=== PATIENT | female | born 1975 | race African-American/Black ===

== ENCOUNTER 2022-08-05 11:41 | Inpatient (IN) | payer MEDICAID ==
[~2022-08-05] VITALS: Ht 160 cm; Wt 56.9 kg
[2022-08-05] MEDS ORDERED: HYDROmorphone HCL 2 MG/ML VL/or syr IV ONE (12:15)
[2022-08-05] MEDS ORDERED: SODIUM CHLORIDE 0.9% 1,000 ML IV ONE ×2 (12:15→23:45)
[2022-08-05] MEDS ORDERED: ONDANSETRON HCL 4 MG/2 ML VIAL IV ONE (12:15)
[2022-08-05 12:26] LABS: Hematocrit 25.2 % (36.0-46.0); Hemoglobin 8.8 g/dL (12.2-16.2); Mean Corpuscular Hemoglobin 34.2 pg (28.0-32.0); Mean Corpuscular Hgb Conc. 35.1 g/dL (32.0-36.0); Mean Corpuscular Volume 97.2 fL (80.0-100.0); Red Blood Cells 2.59 10^6/uL (4.0-5.20); White Blood Cell 16.6 10^3/uL (4.4-10.8)
[2022-08-05 12:36] LABS: Red Cell Distribution Width 23.6 % (11.8-14.3)
[2022-08-05 12:41] LABS: Basophils % (manual) 0 (0.0-2.0); Blast Cells 0; Eosinophils % (manual) 0 (0-7); INR 1.56 (0.9-1.15); Myelocytes % 0; Partial Thromboplastin Time 34.2 sec (24.6-33.4); Promyelocytes % 0; Reactive Lymphocytes 0
[2022-08-05 12:54] LABS: Albumin 4.3 g/dL (3.4-5.0); Calcium 9.1 mg/dL (8.5-10.1); Potassium 3.9 mmol/L (3.5-5.1)
[2022-08-05 12:58] LABS: BUN/Creatinine Ratio 13.8; Bilirubin, Total 5.3 mg/dL (0.2-1.0); Total Protein 8.3 g/dL (6.4-8.2)
[2022-08-05 14:55] LABS: Band Neutrophils % (manual) 9; Lymphocytes % (manual) 5 (10.0-50.0); Metamyelocytes % 1; Monocytes % (manual) 3 (0-12)
[2022-08-05] MEDS: SODIUM CHLORIDE 0.9% 1,000 ML IV SCH (22:00)
[2022-08-05] MEDS: ACETAMINOPHEN 325 MG TAB PO PRN (23:35)
[2022-08-06] MEDS: SODIUM CHLORIDE 0.9% 1,000 ML IV SCH ×3 (00:49→21:25)
[2022-08-06] MEDS: MORPHINE SULFATE INJ 2 MG/ml SYRG IV PRN ×3 (00:50→21:27)
[2022-08-06] MEDS: ONDANSETRON HCL 4 MG/2 ML VIAL IV PRN ×2 (00:50→06:27)
[2022-08-06] MEDS: HYDROcodone-ACET 5/325MG TAB PO PRN ×2 (02:49→10:59)
[2022-08-06] MEDS: DOCUSATE SOD 100 MG CAP PO PRN (03:47)
[2022-08-06 04:49] LABS: Urine Amorphous Crystal FEW /hpf (None Seen); Urine Bacteria FEW /hpf (None Seen); Urine Blood 3+ /uL (Negative); Urine Mucus FEW (None Seen); Urine Specific Gravity 1.012 (1.001-1.035); Urine WBC 1 /hpf (0 - 5)
[2022-08-06 04:50] LABS: Hemoglobin 8.2 g/dL (12.2-16.2)
[2022-08-06 04:56] LABS: INR 2.03 (0.9-1.15); Partial Thromboplastin Time 39.3 sec (24.6-33.4)
[2022-08-06 04:58] LABS: Albumin 3.3 g/dL (3.4-5.0); Anion Gap 10 (5-15); BUN/Creatinine Ratio 22.2; Blood Urea Nitrogen 18 mg/dL (7-18); Calcium 7.5 mg/dL (8.5-10.1); Carbon Dioxide 19 mmol/L (21-32); Chloride 107 mmol/L (98-107); GFR African American 97 mL/min; GFR Non-African American 81 mL/min; Glucose 113 mg/dL (74-106); Potassium 3.6 mmol/L (3.5-5.1); Sodium 136 mmol/L (136-145)
[2022-08-06 05:00] LABS: Basophils # (auto) 0.2 10 ^3/uL (0-0.2); Basophils % (auto) 1.1 % (0.0-2.0); Eosinophils # (auto) 0 10 ^3/uL (0-0.8); Eosinophils % (auto) 0.2 % (0.0-7.0); Hematocrit 22.8 % (36.0-46.0); Lymphocytes # (auto) 0.9 10 ^3/uL (0.4-5.4); Lymphocytes % (auto) 5.8 % (10.0-50.0); Mean Corpuscular Hemoglobin 35.7 pg (28.0-32.0); Mean Corpuscular Hgb Conc. 36.1 g/dL (32.0-36.0); Mean Corpuscular Volume 98.9 fL (80.0-100.0); Monocytes # (auto) 1.8 10 ^3/uL (0-1.3); Neutrophils # (auto) 11.8 10 ^3/uL (1.6-8.6); Neutrophils % (auto) 80.9 % (37.0-80.0); Red Blood Cells 2.31 10^6/uL (4.0-5.20); White Blood Cell 14.6 10^3/uL (4.4-10.8)
[2022-08-06 05:01] LABS: Alanine Aminotransferase 64 U/L (13-56); Alkaline Phosphatase 175 U/L (45-117); Aspartate Aminotransferase 205 U/L (15-37); Bilirubin, Total 3.8 mg/dL (0.2-1.0); Red Cell Distribution Width 24.3 % (11.8-14.3); Total Protein 6.8 g/dL (6.4-8.2)
[2022-08-06] MEDS: PANTOPRAZOLE 40 MG/10 ML VIAL INJ IV SCH (10:07)
[2022-08-06] MEDS: ACETAMINOPHEN 325 MG TAB PO PRN (16:36)
[2022-08-06] MEDS ORDERED: WARFARIN SODIUM 5 MG TAB PO ONE (17:00)
[2022-08-06 23:22] VITALS: BP 132/73
[2022-08-07] VITALS (7 sets, daily range): BP systolic 103–127; BP diastolic 61–80
[2022-08-07] MEDS ORDERED: WARF6TAB21 PO (00:23)
[2022-08-07] MEDS ORDERED: ASCO500C5 PO (00:23)
[2022-08-07] MEDS ORDERED: FOLI1TAB6 PO (00:23)
[2022-08-07] MEDS ORDERED: CYA100I IM (00:23)
[2022-08-07] MEDS ORDERED: ACET1CAP14 PO (00:23)
[2022-08-07] MEDS ORDERED: HYDR-4798 PO (00:23)
[2022-08-07] MEDS ORDERED: WARF2TAB49 PO (00:23)
[2022-08-07] MEDS ORDERED: HYD500C PO (00:23)
[2022-08-07] MEDS: HYDROcodone-ACET 5/325MG TAB PO PRN (00:55)
[2022-08-07] MEDS: MORPHINE SULFATE INJ 2 MG/ml SYRG IV PRN ×4 (05:01→22:49)
[2022-08-07 06:19] LABS: INR 3.72 (0.9-1.15)
[2022-08-07] MEDS: SODIUM CHLORIDE 0.9% 1,000 ML IV SCH ×3 (07:08→21:00)
[2022-08-07] MEDS: PANTOPRAZOLE 40 MG/10 ML VIAL INJ IV SCH (08:36)
[2022-08-07] MEDS: ACETAMINOPHEN 325 MG TAB PO PRN ×3 (08:37→20:57)
[2022-08-07] MEDS: OXBRYTA PO SCH ×2 (11:22→22:48)
[2022-08-07] MEDS: hydroxyUREA 500 MG CAP PO SCH (11:23)
[2022-08-07] MEDS: CYANOCOBALAMIN 500 MCG TAB PO SCH (11:23)
[2022-08-07] MEDS: ASCORBIC ACID 500 MG TAB PO SCH (11:23)
[2022-08-07] MEDS: FOLIC ACID 1 MG TAB PO SCH (11:23)
[2022-08-07] MEDS: AZITHROMYCIN 500MG/ 250ML 250 ML IV SCH (11:23)
[2022-08-07] MEDS: ONDANSETRON HCL 4 MG/2 ML VIAL IV PRN ×2 (18:03→22:45)
[2022-08-08] MEDS: HYDROcodone-ACET 5/325MG TAB PO PRN (00:32)
[2022-08-08 05:00] VITALS: BP 107/67
[2022-08-08 05:30] LABS: Basophils # (auto) 0.1 10 ^3/uL (0-0.2)
[2022-08-08 05:33] LABS: Basophils % (auto) 0.4 % (0.0-2.0); Eosinophils # (auto) 0.1 10 ^3/uL (0-0.8); Eosinophils % (auto) 0.4 % (0.0-7.0); Hematocrit 25.2 % (36.0-46.0); Hemoglobin 8.7 g/dL (12.2-16.2); Lymphocytes # (auto) 3.4 10 ^3/uL (0.4-5.4); Lymphocytes % (auto) 20.4 % (10.0-50.0); Mean Corpuscular Hemoglobin 35.8 pg (28.0-32.0); Mean Corpuscular Hgb Conc. 34.7 g/dL (32.0-36.0); Mean Corpuscular Volume 103.1 fL (80.0-100.0); Monocytes # (auto) 1.2 10 ^3/uL (0-1.3); Neutrophils # (auto) 12.1 10 ^3/uL (1.6-8.6); Neutrophils % (auto) 71.8 % (37.0-80.0); Nucleated Red Blood Cells % 102.9 %; Red Blood Cells 2.44 10^6/uL (4.0-5.20); White Blood Cell 16.9 10^3/uL (4.4-10.8)
[2022-08-08 05:37] LABS: Red Cell Distribution Width 22.7 % (11.8-14.3)
[2022-08-08 05:46] LABS: Partial Thromboplastin Time 57.5 sec (24.6-33.4)
[2022-08-08 05:50] LABS: INR 4.77 (0.9-1.15)
[2022-08-08] MEDS: ACETAMINOPHEN 325 MG TAB PO PRN ×2 (06:31→18:30)
[2022-08-08 08:39] LABS: Bilirubin, Total 2.8 mg/dL (0.2-1.0); Calcium 7.3 mg/dL (8.5-10.1); Total Protein 6.3 g/dL (6.4-8.2)
[2022-08-08 08:40] LABS: Magnesium 2.2 mg/dL (1.6-2.6)
[2022-08-08 09:25] VITALS: BP 108/65
[2022-08-08] MEDS: hydroxyUREA 500 MG CAP PO SCH (09:28)
[2022-08-08] MEDS: DOCUSATE SOD 100 MG CAP PO PRN (09:28)
[2022-08-08] MEDS: FOLIC ACID 1 MG TAB PO SCH (09:28)
[2022-08-08] MEDS: ASCORBIC ACID 500 MG TAB PO SCH (09:28)
[2022-08-08] MEDS: CYANOCOBALAMIN 500 MCG TAB PO SCH (09:28)
[2022-08-08] MEDS: OXBRYTA PO SCH ×2 (09:31→21:53)
[2022-08-08] MEDS: PANTOPRAZOLE 40 MG/10 ML VIAL INJ IV SCH (11:24)
[2022-08-08] MEDS: AZITHROMYCIN 500MG/ 250ML 250 ML IV SCH (11:25)
[2022-08-08] MEDS: MORPHINE SULFATE INJ 2 MG/ml SYRG IV PRN (11:26)
[2022-08-08] MEDS: SODIUM CHLORIDE 0.9% 1,000 ML IV SCH (11:27)
[2022-08-08] MEDS ORDERED: IBUPROFEN 400 MG TAB PO PRN (13:00)
[2022-08-08 13:06] VITALS: BP 108/64
[2022-08-08 16:34] VITALS: BP 107/61
[2022-08-08] MEDS ORDERED: PHYTONADIONE(VitK) ORAL Susp 10mg/10ml(1mg/ml) PO ONE (17:00)
[2022-08-08] MEDS ORDERED: POTASSIUM CHL 20 Meq TABLET PO ONE (20:00)
[2022-08-08 22:00] VITALS: BP 113/62
[2022-08-09] VITALS (20 sets, daily range): BP systolic 101–128; BP diastolic 50–80
[2022-08-09] MEDS: HYDROcodone-ACET 5/325MG TAB PO PRN (00:55)
[2022-08-09] MEDS: DOCUSATE SOD 100 MG CAP PO PRN ×2 (05:59→22:28)
[2022-08-09 06:03] LABS: INR 1.57 (0.9-1.15); Partial Thromboplastin Time 43.9 sec (24.6-33.4)
[2022-08-09] MEDS: OXBRYTA PO SCH ×2 (07:30→10:51)
[2022-08-09 07:41] LABS: Hematocrit 22.3 % (36.0-46.0); Hemoglobin 7.9 g/dL (12.2-16.2); Mean Corpuscular Hemoglobin 36.3 pg (28.0-32.0); Mean Corpuscular Hgb Conc. 35.4 g/dL (32.0-36.0); Mean Corpuscular Volume 102.7 fL (80.0-100.0); Red Blood Cells 2.17 10^6/uL (4.0-5.20)
[2022-08-09 07:47] LABS: Red Cell Distribution Width 22.8 % (11.8-14.3)
[2022-08-09 07:48] LABS: Basophils % (manual) 0 (0.0-2.0); Blast Cells 0; Eosinophils % (manual) 0 (0-7); Metamyelocytes % 0; Myelocytes % 0; Promyelocytes % 0; Reactive Lymphocytes 0
[2022-08-09 08:08] LABS: Albumin 2.9 g/dL (3.4-5.0); BUN/Creatinine Ratio 14.7; Calcium 7.6 mg/dL (8.5-10.1); Potassium 3.4 mmol/L (3.5-5.1)
[2022-08-09 08:13] LABS: Bilirubin, Total 3.5 mg/dL (0.2-1.0); Total Protein 6.2 g/dL (6.4-8.2)
[2022-08-09] MEDS: AZITHROMYCIN 500MG/ 250ML 250 ML IV SCH (10:32)
[2022-08-09] MEDS: ONDANSETRON HCL 4 MG/2 ML VIAL IV PRN (10:33)
[2022-08-09] MEDS: PANTOPRAZOLE 40 MG/10 ML VIAL INJ IV SCH (10:33)
[2022-08-09] MEDS: hydroxyUREA 500 MG CAP PO SCH (10:34)
[2022-08-09] MEDS: MORPHINE SULFATE INJ 2 MG/ml SYRG IV PRN ×2 (10:34→13:00)
[2022-08-09] MEDS: ASCORBIC ACID 500 MG TAB PO SCH (10:35)
[2022-08-09] MEDS: CYANOCOBALAMIN 500 MCG TAB PO SCH (10:35)
[2022-08-09] MEDS: FOLIC ACID 1 MG TAB PO SCH (10:35)
[2022-08-09] MEDS: SODIUM CHLORIDE 0.9% 1,000 ML IV SCH ×2 (10:52→14:56)
[2022-08-09 11:12] LABS: Band Neutrophils % (manual) 8; Lymphocytes % (manual) 14 (10.0-50.0); Monocytes % (manual) 8 (0-12)
[2022-08-09] MEDS: ACETAMINOPHEN 325 MG TAB PO PRN (12:23)
[2022-08-09] MEDS ORDERED: SENNA 8.6 MG TAB PO ONE (14:45)
[2022-08-09] MEDS: cefTRIAXone 1GM/50ML D5W 50 ML IV SCH (15:01)
[2022-08-09] MEDS ORDERED: POTASSIUM EFFERVESENT TAB 25 MEQ PO ONE (16:30)
[2022-08-09] MEDS ORDERED: WARFARIN SODIUM 2 MG TAB PO ONE (17:00)
[2022-08-09] MEDS: LACTULOSE 20Gm/30ML SOLN PO SCH (17:53)
[2022-08-09] MEDS ORDERED: POTASSIUM CHL 20 Meq TABLET PO ONE (18:00)
[2022-08-09] MEDS ORDERED: FUROSEMIDE 40 MG/4 ML VIAL IV ONE (20:45)
[2022-08-10] VITALS (41 sets, daily range): BP systolic 87–123; BP diastolic 45–75
[2022-08-10] MEDS: ACETAMINOPHEN 325 MG TAB PO PRN ×2 (04:19→18:33)
[2022-08-10 05:55] LABS: Hematocrit 21.3 % (36.0-46.0); Hemoglobin 7.7 g/dL (12.2-16.2); Mean Corpuscular Hemoglobin 36.7 pg (28.0-32.0); Mean Corpuscular Hgb Conc. 36.1 g/dL (32.0-36.0); Mean Corpuscular Volume 101.6 fL (80.0-100.0); White Blood Cell 18.7 10^3/uL (4.4-10.8)
[2022-08-10 05:59] LABS: Red Cell Distribution Width 22.3 % (11.8-14.3)
[2022-08-10] MEDS ORDERED: FUROSEMIDE 40 MG/4 ML VIAL IV SCH (06:00)
[2022-08-10 06:01] LABS: Basophils % (manual) 0 (0.0-2.0); Blast Cells 0; Eosinophils % (manual) 0 (0-7); Metamyelocytes % 0; Myelocytes % 0; Promyelocytes % 0; Reactive Lymphocytes 0
[2022-08-10 06:06] LABS: INR 1.41 (0.9-1.15); Partial Thromboplastin Time 39.6 sec (24.6-33.4)
[2022-08-10 06:22] LABS: Albumin 2.6 g/dL (3.4-5.0); Calcium 8.3 mg/dL (8.5-10.1)
[2022-08-10 06:24] LABS: Bilirubin, Total 2.6 mg/dL (0.2-1.0); Total Protein 6.8 g/dL (6.4-8.2)
[2022-08-10 06:29] LABS: Potassium 2.8 mmol/L (3.5-5.1)
[2022-08-10] MEDS ORDERED: POTASSIUM CHL 20 Meq TABLET PO ONE (06:45)
[2022-08-10 09:30] LABS: Band Neutrophils % (manual) 9; Lymphocytes % (manual) 7 (10.0-50.0); Monocytes % (manual) 9 (0-12)
[2022-08-10] MEDS: AZITHROMYCIN 500MG/ 250ML 250 ML IV SCH (09:50)
[2022-08-10] MEDS: cefTRIAXone 1GM/50ML D5W 50 ML IV SCH (09:50)
[2022-08-10] MEDS: ASCORBIC ACID 500 MG TAB PO SCH (09:50)
[2022-08-10] MEDS: LACTULOSE 20Gm/30ML SOLN PO SCH (09:50)
[2022-08-10] MEDS: FOLIC ACID 1 MG TAB PO SCH (09:50)
[2022-08-10] MEDS: CYANOCOBALAMIN 500 MCG TAB PO SCH (09:50)
[2022-08-10] MEDS: PANTOPRAZOLE 40 MG/10 ML VIAL INJ IV SCH (09:50)
[2022-08-10] MEDS: hydroxyUREA 500 MG CAP PO SCH (10:18)
[2022-08-10] MEDS: OXBRYTA PO SCH (10:28)
[2022-08-10] MEDS: HYDROcodone-ACET 5/325MG TAB PO PRN ×2 (10:47→22:02)
[2022-08-10] MEDS ORDERED: ALBUTEROL MEDNEB 2.5 mg/3ml NEB NEB PRN (11:45)
[2022-08-10] MEDS ORDERED: IPRATROPIUM BROM 0.5 MG/2.5ML INH SOL NEB PRN (11:45)
[2022-08-10 12:28] LABS: Magnesium 2.2 mg/dL (1.6-2.6); Potassium 4.1 mmol/L (3.5-5.1)
[2022-08-10] MEDS ORDERED: WARFARIN SODIUM 2 MG TAB PO ONE (17:00)
[2022-08-10] MEDS: FUROSEMIDE 40 MG/4 ML VIAL IV SCH (17:39)
[2022-08-10] MEDS: POTASSIUM CHL 20 Meq TABLET PO SCH (22:03)
[2022-08-11] VITALS (23 sets, daily range): BP systolic 96–122; BP diastolic 56–84
[2022-08-11 05:33] LABS: INR 1.22 (0.9-1.15); Partial Thromboplastin Time 23.3 sec (24.6-33.4)
[2022-08-11 05:54] LABS: Anion Gap 6 (5-15); Blood Urea Nitrogen 6 mg/dL (7-18); Calcium 8.4 mg/dL (8.5-10.1); Carbon Dioxide 31 mmol/L (21-32); Chloride 103 mmol/L (98-107); Glucose 107 mg/dL (74-106); Potassium 3.7 mmol/L (3.5-5.1); Sodium 140 mmol/L (136-145)
[2022-08-11 05:56] LABS: BUN/Creatinine Ratio 7.2; GFR African American 95 mL/min; GFR Non-African American 78 mL/min
[2022-08-11] MEDS: FUROSEMIDE 40 MG/4 ML VIAL IV SCH ×2 (06:06→17:42)
[2022-08-11] MEDS: cefTRIAXone 1GM/50ML D5W 50 ML IV SCH (09:17)
[2022-08-11] MEDS: LACTULOSE 20Gm/30ML SOLN PO SCH (10:00)
[2022-08-11] MEDS ORDERED: OXBRYTA PO SCH (10:00)
[2022-08-11] MEDS: AZITHROMYCIN 500MG/ 250ML 250 ML IV SCH (10:02)
[2022-08-11] MEDS: CYANOCOBALAMIN 500 MCG TAB PO SCH (10:03)
[2022-08-11] MEDS: hydroxyUREA 500 MG CAP PO SCH (10:03)
[2022-08-11] MEDS: ASCORBIC ACID 500 MG TAB PO SCH (10:03)
[2022-08-11] MEDS: PANTOPRAZOLE 40 MG/10 ML VIAL INJ IV SCH (10:03)
[2022-08-11] MEDS: FOLIC ACID 1 MG TAB PO SCH (10:03)
[2022-08-11] MEDS: OXBRYTA PO SCH (10:04)
[2022-08-11] MEDS: POTASSIUM CHL 20 Meq TABLET PO SCH ×2 (10:07→22:00)
[2022-08-11] MEDS: guaiFENesin 200 MG/10 ML UD PO PRN (14:02)
[2022-08-11] MEDS ORDERED: SODIUM FERR GLUC 62.5MG/5ML 125 MG in SODIUM CHL 0.9% 100 ML IV SCH (15:30)
[2022-08-11 16:46] LABS: Alcohol, Urine < 3.0 mg/dL (0-10); Amphetamine Screen, Urine NEGATIVE (NEGATIVE); Barbiturate Scree,Urine NEGATIVE (NEGATIVE); Benzodiazephine Screen, Urine NEGATIVE (NEGATIVE); Cannabinoid Screen, Urine NEGATIVE (NEGATIVE); Cocaine Screen, Urine NEGATIVE (NEGATIVE); Opiate Scree,Urine NEGATIVE (NEGATIVE); Phencyclidine Screen, Urine NEGATIVE (NEGATIVE)
[2022-08-11] MEDS ORDERED: WARFARIN SODIUM 5 MG TAB PO ONE (17:00)
[2022-08-12] VITALS (22 sets, daily range): BP systolic 92–124; BP diastolic 51–83
[2022-08-12] MEDS: FUROSEMIDE 40 MG/4 ML VIAL IV SCH ×2 (05:48→18:09)
[2022-08-12 06:09] LABS: Hematocrit 26.9 % (36.0-46.0); Hemoglobin 9.2 g/dL (12.2-16.2); Mean Corpuscular Hemoglobin 35.6 pg (28.0-32.0); Mean Corpuscular Hgb Conc. 34.1 g/dL (32.0-36.0); Mean Corpuscular Volume 104.6 fL (80.0-100.0); Red Blood Cells 2.57 10^6/uL (4.0-5.20); White Blood Cell 19.6 10^3/uL (4.4-10.8)
[2022-08-12 06:21] LABS: Red Cell Distribution Width 23.3 % (11.8-14.3)
[2022-08-12 06:22] LABS: Basophils % (manual) 0 (0.0-2.0); Blast Cells 0; Eosinophils % (manual) 0 (0-7); Myelocytes % 0; Promyelocytes % 0; Reactive Lymphocytes 0
[2022-08-12] MEDS: cefTRIAXone 1GM/50ML D5W 50 ML IV SCH (09:10)
[2022-08-12] MEDS: LACTULOSE 20Gm/30ML SOLN PO SCH (09:17)
[2022-08-12] MEDS: AZITHROMYCIN 500MG/ 250ML 250 ML IV SCH (09:17)
[2022-08-12] MEDS: PANTOPRAZOLE 40 MG/10 ML VIAL INJ IV SCH (09:17)
[2022-08-12] MEDS: FOLIC ACID 1 MG TAB PO SCH (09:18)
[2022-08-12] MEDS: ASCORBIC ACID 500 MG TAB PO SCH (09:18)
[2022-08-12] MEDS: CYANOCOBALAMIN 500 MCG TAB PO SCH (09:18)
[2022-08-12] MEDS: hydroxyUREA 500 MG CAP PO SCH (09:18)
[2022-08-12] MEDS: POTASSIUM CHL 20 Meq TABLET PO SCH ×3 (09:18→21:25)
[2022-08-12] MEDS: OXBRYTA PO SCH (10:00)
[2022-08-12 10:23] LABS: INR 1.51 (0.9-1.15)
[2022-08-12 10:49] LABS: Calcium 8.7 mg/dL (8.5-10.1); Potassium 3.7 mmol/L (3.5-5.1)
[2022-08-12 10:51] LABS: BUN/Creatinine Ratio 9.9
[2022-08-12 13:15] LABS: Band Neutrophils % (manual) 77
[2022-08-12 13:16] LABS: Lymphocytes % (manual) 9 (10.0-50.0); Metamyelocytes % 1; Monocytes % (manual) 8 (0-12)
[2022-08-12] MEDS: ACETAMINOPHEN 325 MG TAB PO PRN (14:25)
[2022-08-12] MEDS ORDERED: WARFARIN SODIUM 1 MG TAB PO ONE (17:00)
[2022-08-12] MEDS: guaiFENesin 200 MG/10 ML UD PO PRN (18:06)
[2022-08-13] VITALS (15 sets, daily range): BP systolic 94–117; BP diastolic 61–77
[2022-08-13 05:15] LABS: Hematocrit 25.9 % (36.0-46.0); Hemoglobin 8.7 g/dL (12.2-16.2); Mean Corpuscular Hemoglobin 35.6 pg (28.0-32.0); Mean Corpuscular Hgb Conc. 33.8 g/dL (32.0-36.0); Mean Corpuscular Volume 105.4 fL (80.0-100.0); Red Blood Cells 2.45 10^6/uL (4.0-5.20)
[2022-08-13 05:17] LABS: Basophils % (manual) 0 (0.0-2.0); Blast Cells 0; Metamyelocytes % 0; Promyelocytes % 0; Reactive Lymphocytes 0
[2022-08-13 05:30] LABS: INR 1.76 (0.9-1.15)
[2022-08-13 05:32] LABS: BUN/Creatinine Ratio 12.9; Calcium 8.7 mg/dL (8.5-10.1)
[2022-08-13 05:41] LABS: Potassium 2.8 mmol/L (3.5-5.1)
[2022-08-13] MEDS: FUROSEMIDE 40 MG/4 ML VIAL IV SCH ×2 (06:00→18:00)
[2022-08-13] MEDS: POTASSIUM CHL 20MEQ/100ML 100 ML IV SCH ×4 (06:45→15:21)
[2022-08-13 06:58] LABS: Band Neutrophils % (manual) 6; Eosinophils % (manual) 1 (0-7); Myelocytes % 1
[2022-08-13 06:59] LABS: Lymphocytes % (manual) 11 (10.0-50.0); Monocytes % (manual) 7 (0-12)
[2022-08-13] MEDS: cefTRIAXone 1GM/50ML D5W 50 ML IV SCH (08:38)
[2022-08-13] MEDS: PANTOPRAZOLE 40 MG/10 ML VIAL INJ IV SCH (08:38)
[2022-08-13] MEDS: AZITHROMYCIN 500MG/ 250ML 250 ML IV SCH (09:25)
[2022-08-13] MEDS: LACTULOSE 20Gm/30ML SOLN PO SCH (09:48)
[2022-08-13] MEDS: CYANOCOBALAMIN 500 MCG TAB PO SCH (10:00)
[2022-08-13] MEDS: FOLIC ACID 1 MG TAB PO SCH (10:00)
[2022-08-13] MEDS: ASCORBIC ACID 500 MG TAB PO SCH (10:00)
[2022-08-13] MEDS: OXBRYTA PO SCH (10:25)
[2022-08-13] MEDS: POTASSIUM CHL 20 Meq TABLET PO SCH ×2 (10:25→22:00)
[2022-08-13] MEDS: hydroxyUREA 500 MG CAP PO SCH (10:25)
[2022-08-13] MEDS: ONDANSETRON HCL 4 MG/2 ML VIAL IV PRN (11:27)
[2022-08-13] MEDS: MORPHINE SULFATE INJ 2 MG/ml SYRG IV PRN (13:17)
[2022-08-13] MEDS ORDERED: LOPERAMIDE HCL 2 MG CAP/TAB PO ONE ×2 (16:15→17:00)
[2022-08-13] MEDS ORDERED: POTA1TAB61 PO (16:42)
[2022-08-13] MEDS ORDERED: FURO1TAB31 PO (16:42)
[2022-08-13] MEDS ORDERED: AUG875T PO (16:42)
[2022-08-13] MEDS ORDERED: WARFARIN SODIUM 1 MG TAB PO ONE (17:00)
[2022-08-13 18:45] LABS: BUN/Creatinine Ratio 12.7; Calcium 8.5 mg/dL (8.5-10.1); Potassium 3.7 mmol/L (3.5-5.1)
[2022-08-14] VITALS: BP 108/61
[2022-08-14 04:00] VITALS: BP 118/68
[2022-08-14 05:42] LABS: INR 1.91 (0.9-1.15)
[2022-08-14] MEDS: FUROSEMIDE 40 MG/4 ML VIAL IV SCH (06:59)
[2022-08-14 08:16] VITALS: BP 100/70
[2022-08-14] MEDS ORDERED: WARFARIN SODIUM 2.5 MG TAB PO ONE (17:00)
== END 2022-08-14 10:55 | disposition home or self-care (01) | DRG 662 ==
LOC: ER 11:41 → OVERFLOW 14:43 → EAST 08-06 22:50 → DOU IN ICU 08-09 15:56
PROVIDERS: ADMIT Nurse Practitioner Family; ATTEND Internal Medicine
DX: D57.00 Hb-SS disease with crisis, unspecified (principal); J96.01 Acute respiratory failure with hypoxia; R65.11 Systemic inflammatory response syndrome (SIRS) of non-infectious origin with acute organ dysfunction; I67.5 Moyamoya disease; D69.6 Thrombocytopenia, unspecified; J90 Pleural effusion, not elsewhere classified; I27.20 Pulmonary hypertension, unspecified; D72.829 Elevated white blood cell count, unspecified; K59.00 Constipation, unspecified; Z20.822 Contact with and (suspected) exposure to COVID-19; D64.9 Anemia, unspecified; Z86.73 Personal history of transient ischemic attack (TIA), and cerebral infarction without residual deficits; Z90.49 Acquired absence of other specified parts of digestive tract; Z83.3 Family history of diabetes mellitus; Z82.49 Family history of ischemic heart disease and other diseases of the circulatory system; Z82.3 Family history of stroke; Z80.41 Family history of malignant neoplasm of ovary; Z80.3 Family history of malignant neoplasm of breast
CPT/HCPCS: 36415; 36600; 71045; 71046; 74176; 76604; 80048; 80053; 80307; 81001; 82805; 83605; 83735; 83880; 84132; 84439; 84443; 85007; 85025; 85027; 85045; 85610; 85730; 87040; 87081; 87086; 87426; 87804; 93005; 93306; 96361; 96374; 97110; 97116; 97163; C9113; G0378; J0696; J2405; J3480